=== PATIENT | male | born 1965 | race African-American/Black ===

== ENCOUNTER 2022-02-23 15:07 | Emergency (ER) | payer OTHER ==
[~2022-02-23] VITALS: Ht 165.1 cm; Wt 75.0 kg
[2022-02-23 15:57] VITALS: BP 188/110
[2022-02-23] MEDS ORDERED: AMLO2.5T2 MT (16:42)
== END 2022-02-23 17:49 | disposition home or self-care (01) ==
LOC: ER 15:07
DX: I16.0 Hypertensive urgency (principal)
CPT/HCPCS: 99283